=== PATIENT | male | born 1955 | race Caucasian/White ===

== ENCOUNTER → 2023-11-18 | Emergency (ER) | payer OTHER ==
[~2023-11-18] MED LIST: FOLIC ACID 5 MG/ML VIAL ONE; LEVETIRACETAM 500 MG/5 ML VIAL IV ONE; NA CHLORIDE 0.9% 1,000 ML ONE; NA CHLORIDE 0.9% 1,000 ML with MULTIVITAMINS INJ 10 ML, THIAMINE HCL 100 MG, FOLIC ACID... IV ONE; NA CHLORIDE 0.9% 100 ML ONE; THIAMINE 200 MG/2 ML INJ ONE
[2023-11-18 11:29] LABS: Absolute Basophils 0.1 K/uL (0-0.5); Absolute Eosinophils 0.1 K/uL (0-0.5); Basophils % 0.9 % (0-1.3); Eosinophils % 1.3 % (0-4.4); Hematocrit 50.4 % (39.6-49.0); Lymphocytes % 17.1 % (15.3-44.8); MCV 92.1 fL (80-100); MPV 7.4 fL (7.6-11.3); Platelets 254 thou/uL (152-406); RBC Red Blood Cell Count 5.47 M/uL (4.33-5.43)
[2023-11-18 11:32] LABS: Protime INR 1.15
--- NOTE | 2023-11-18 11:45 | ER ---
Nurse's Notes [facility] Name: Gerry Keating Age: 68 yrs Sex: Male : 1955 Arrival Date: 11/18/2023 Time: 10:56 Bed 2 Private MD: Diagnosis: Traumatic subdural hemorrhage-left large, acute on chronic;Fall on same level, unspecified;Alcohol abuse Presentation: 11/17 11:09 Chief complaint: Per he fell in shower 2 days ago, does not recall falling, since hb then has been having trouble speaking and c/o left leg weakness. Pt also reports SOB. Right sided facial droop noted. Coronavirus screen: At this time, the client does not indicate any symptoms associated with coronavirus-19. Ebola Screen: No symptoms or risks identified at this time. An acute neurological deficit is present. The charge nurse has been notified. Initial Sepsis Screen: Does the patient meet any 2 criteria? No. Patient's initial sepsis screen is negative. Does the patient have a suspected source of infection? No. Patient's initial sepsis screen is negative. Risk Assessment: Do you want to hurt yourself or someone else? Patient reports no desire to harm self or others. Onset of symptoms was November 16, 2023. 11:09 Method Of Arrival: Wheelchair hb 11:09 Acuity: JAYJAY 2 hb Triage Assessment: 11:14 The onset of the patients symptoms was November 16, 2023 at 09:00. General: Appears bp distressed, Behavior is cooperative. Pain: Denies pain. EENT: No deficits noted. Neuro: Reports weakness in right arm and right leg. Cardiovascular: No deficits noted. Respiratory: No deficits noted. GI: No signs and/or symptoms were reported involving the gastrointestinal system. : No signs and/or symptoms were reported regarding the genitourinary system. Derm: No deficits noted. Musculoskeletal: No deficits noted. Stroke Activation: Symptom onset > 6 hours Physician: Stroke Attending; Name: ; Notified At: ; Arrived At: Physician: Chief Stroke Resident; Name: ; Notified At: ; Arrived At: Physician: Stroke Resident; Name: ; Notified At: ; Arrived At: Physician: ED Attending; Name: ; Notified At: ; Arrived At: Physician: ED Resident; Name: ; Notified At: ; Arrived At: Historical: - Allergies: 11:13 No Known Allergies; bp 11:13 No Known Allergies; hb - Home Meds: 11:13 Zoloft 150 mg Oral tablet daily [Active]; amlodipine 5 mg oral tablet 2 times per day hb [Active]; atorvastatin 20 mg oral tablet [Active]; metoprolol tartrate 25 mg Oral tablet 2 times per day [Active]; Zyrtec 10 mg Oral tablet daily [Active]; multivitamin oral tablet daily [Active]; - PMHx: 11:13 Hypertensive disorder; bp 11:13 Hypertension; hb - PSHx: 11:13 Hand; Back x 4; hb - Immunization history:: Adult Immunizations up to date, Adult Immunizations up to date. - Social history:: Smoking status: Patient denies any tobacco usage or history of. Smoking status: Patient reports use of chewing tobacco. Reported history of juuling and/or vaping. Patient uses alcohol, on a daily basis. - Family history:: not pertinent. Screenin:15 [facility] ED Fall Risk Assessment (Adult) History of falling in the last 3 months, bp including since admission No falls in past 3 months (0 pts). Abuse screen: Denies threats or abuse. Denies injuries from another. Nutritional screening: No deficits noted. Tuberculosis screening: No symptoms or risk factors identified. Assessment: 11:15 VAN Scoring: Arm Drift: Minor drift Visual Disturbance: No visual disturbance noted. bp Aphasia: Expressive aphasia noted. Provider notified of +VAN scoring. Neglect: No neglect noted. [place] Swallow Protocol Exclusion Criteria: Unable to remain alert for testing: No NPO for medical/surgical reason by provider order No Head-of-bed restricted <30 degrees Tracheostomy tube present No No thin liquids due to preexisting dysphagia/baseline modified diet thickened liquids No Exclusion Criteria Result: Proceed Brief Cognitive Screen What is your name? Normal, Where are you right now? Normal, What year is it? Normal. Oral Mechanism Examination Facial Symmetry: Normal, Motion: Normal, Lip Closure: Normal, Oral Mechanism Result: Normal. TNKase (Tenecteplase) Screening: Contraindications: Patient reports onset of signs and symptoms of stroke greater than 6 hours ago:. 11:52 Reassessment: PT RETURNED FROM CT, CT HEAD GROSSLY ABNORMAL PER RADIOLOGIST. bp 12:10 Reassessment: REPORT TO CORINE JOHN AT [facility]. [facility] IN ROUTE 20 MIN ETA. bp 12:44 Reassessment: PT [place] WITH [facility]. bp Vital Signs: 11:09 BP 114 / 99; Pulse 66; Resp 22; Temp 98.4(O); Pulse Ox 97% on R/A; Weight 95.25 kg; hb Height 6 ft. 0 in. ; Pain 0/10; 11:52 BP 118 / 82; Pulse 62; Resp 16; Temp 98; Pulse Ox 96% ; bp 12:11 BP 114 / 77; Pulse 61; Resp 17; Pulse Ox 98% ; bp 11:09 Body Mass Index 28.48 (95.25 kg, 182.88 cm) hb 11:09 Pain Scale: Adult hb NIH Stroke Scale Scores: 11:15 NIHSS Score: 4 bp 11:32 NIHSS Score: 5 bebeto 12:10 NIHSS Score: 4 bp ED Course: 10:05 EKG done, by ED staff, reviewed by Colin Jennings MD. hb 10:05 Client placed on continuous cardiac and pulse oximetry monitoring. NIBP monitoring hb applied. biodiesel production associate on. Pulse ox on. NIBP on. Warm blanket given. 10:57 Patient arrived in ED. rg4 10:58 Sajan Bates, RN is Primary Nurse. bp 11:00 Colin Jennings MD is Attending Physician. bebeto 11:13 Triage completed. hb 11:13 Inserted saline lock: 20 gauge in right forearm, using aseptic technique. Blood bp collected. 11:15 Patient has correct armband on for positive identification. bp 11:25 XRAY Chest (1 view) In Process Unspecified. EDMS 11:42 CT Stroke Brain w/o Contrast In Process Unspecified. EDMS 11:43 CT C Spine In Process Unspecified. EDMS 11:47 CT Chest, Abdomen, Pelvis - W/Contrast In Process Unspecified. EDMS 11:49 \T\[address] Jennings with Corin Jean Rn from the [facility] Transfer [facility]/ \T\ 114 Dr. Jennings connected with Dr. Xiao the neuro chief controller for [facility] for patient transfer consultation. / \T\[address] to [address] Jennings by Corin Jean Rn/ patient has been accepted to [facility] ER/ Dr. Quang Xiao has accepted the patient in transfer/ report to be called to [phone]. 11:50 [facility] called by Dr Jennings. eb 12:45 No provider procedures requiring assistance completed. Patient transferred, IV remains bp in place. 12:45 Provided Education on: N/A. bp 12:45 Arm band placed on. bp Administered Medications: 11:51 Drug: Keppra IV 1000 mg IV at per protocol once Route: IV; Rate: per protocol; Site: bp right forearm; 12:44 Follow up: IV Status: Completed infusion; IV Intake: 100ml bp 11:52 Drug: NS 0.9% IV 1000 ml IV at 1 bolus Per protocol; 1000 mL bolus Route: IV; Rate: 1 bp bolus; Site: right antecubital; 12:43 Follow up: IV Status: Completed infusion; IV Intake: 1000ml bp 11:52 Drug: foLIC Acid IVPB 1 mg IVPB once Route: IVPB; Site: right antecubital; bp 12:43 Follow up: IV Status: Completed infusion; IV Intake: 100ml bp 12:04 Drug: Thiamine IV 100 mg IV at per protocol once Route: IV; Rate: per protocol; Site: bp right forearm; 12:44 Follow up: IV Status: Completed infusion bp 12:43 Drug: Banana Bag - (Multivitamin IV 1 amp, NS 0.9% IV 1000 ml, Thiamine IV 100 mg, bp foLIC Acid IVPB 1 mg) IV at 150 ml/hr once Route: IV; Rate: 150 ml/hr; Site: right forearm; 12:44 Follow up: IV Status: Infusion continued upon transfer bp Medication: 11:15 VIS not applicable for this client. bp Intake: 12:43 IV: 1000ml; Total: 1000ml. bp 12:43 IV: 100ml; Total: 1100ml. bp 12:44 IV: 100ml; Total: 1200ml. bp Outcome: 11:44 ER care complete, transfer ordered by bebeto 12:45 Transferred by helicopter to [facility], Transfer form completed. bp 12:45 Condition: stable 12:45 Instructed on the need for transfer, 12:46 Patient left the ED. bp NIH Stroke Scale - NIH Stroke Score Date: 11/18/2023 Time: 11:15 Total Score = 4 10. Dysarthria (speech clarity - read or repeat words) - 1(Mild to Moderate) 11. Extinction and Inattention (visual/tactile/auditory/spatial/personal) - 0(No abnormality) 1a. Level of Consciousness (LOC) - 0(Alert) 1b. Level of Consciousness (LOC) (Month \T\ Age) - 0(Both) 1c. LOC Commands (Open \T\ Closes Eyes/Streetcar Motorman) - 0(Both) 2. Best Gaze (Lateral Gaze Paresis) - 0(Normal) 3. Visual Field Loss - 0(No visual loss) 4. Facial Palsy - 1(Minor Paralysis) 5a. Left Arm: Motor (10-second hold) - 0(No drift) 5b. Right Arm: Motor (10-second hold) - 1(Drift) 6a. Left Leg: Motor (5-second hold - always test supine) - 0(No drift) 6b. Right Leg: Motor (5-second hold - always test supine) - 1(Drift) 7. Limb Ataxia (finger/nose \T\ heel/singh - test with eyes open) - 0(Absent) 8. Sensory Loss (pinprick arms/legs/face) - 0(Normal) 9. Best Language: Aphasia (description/naming/reading) - 0(No aphasia) Initials: bp NIH Stroke Scale - NIH Stroke Score Date: 11/18/2023 Time: 11:32 Total Score = 5 10. Dysarthria (speech clarity - read or repeat words) - 0(Normal) 11. Extinction and Inattention (visual/tactile/auditory/spatial/personal) - 0(No abnormality) 1a. Level of Consciousness (LOC) - 0(Alert) 1b. Level of Consciousness (LOC) (Month \T\ Age) - 0(Both) 1c. LOC Commands (Open \T\ Closes Eyes/Streetcar Motorman) - 0(Both) 2. Best Gaze (Lateral Gaze Paresis) - 0(Normal) 3. Visual Field Loss - 0(No visual loss) 4. Facial Palsy - 0(Normal) 5a. Left Arm: Motor (10-second hold) - 0(No drift) 5b. Right Arm: Motor (10-second hold) - 1(Drift) 6a. Left Leg: Motor (5-second hold - always test supine) - 0(No drift) 6b. Right Leg: Motor (5-second hold - always test supine) - 1(Drift) 7. Limb Ataxia (finger/nose \T\ heel/singh - test with eyes open) - 2(Present in two limbs) 8. Sensory Loss (pinprick arms/legs/face) - 0(Normal) 9. Best Language: Aphasia (description/naming/reading) - 1(Mild to moderate aphasia) Initials: bebeto NIH Stroke Scale - NIH Stroke Score Date: 11/18/2023 Time: 12:10 Total Score = 4 10. Dysarthria (speech clarity - read or repeat words) - 1(Mild to Moderate) 11. Extinction and Inattention (visual/tactile/auditory/spatial/personal) - 0(No abnormality) 1a. Level of Consciousness (LOC) - 0(Alert) 1b. Level of Consciousness (LOC) (Month \T\ Age) - 0(Both) 1c. LOC Commands (Open \T\ Closes Eyes/Streetcar Motorman) - 0(Both) 2. Best Gaze (Lateral Gaze Paresis) - 0(Normal) 3. Visual Field Loss - 0(No visual loss) 4. Facial Palsy - 1(Minor Paralysis) 5a. Left Arm: Motor (10-second hold) - 0(No drift) 5b. Right Arm: Motor (10-second hold) - 1(Drift) 6a. Left Leg: Motor (5-second hold - always test supine) - 0(No drift) 6b. Right Leg: Motor (5-second hold - always test supine) - 1(Drift) 7. Limb Ataxia (finger/nose \T\ heel/singh - test with eyes open) - 0(Absent) 8. Sensory Loss (pinprick arms/legs/face) - 0(Normal) 9. Best Language: Aphasia (description/naming/reading) - 0(No aphasia) Initials: bp Signatures: Dispatcher [employer] Colin Escobedo MD MD cha Baxter, Heather, RN RN Anahi Frankel Brian, RN Kelly Chan Corrections: (The following items were deleted from the chart) 11:19 11:13 PMHx: Hyppertension; hb hb
--- NOTE | 2023-11-18 11:45 | EDPHYS ---
Physician Documentation [facility] Name: Gerry Keating Age: 68 yrs Sex: Male : 1955 Arrival Date: 11/18/2023 Time: 10:56 Bed 2 Private MD: ED Physician Colin Jennings HPI: 11/17 11:32 This 68 yrs old Male presents to ER via Wheelchair with complaints of Trouble bebeto Talking, Trouble Walking. 11:32 The patient presents to the emergency department with a speech or higher order brain bebeto function problem, aphasia, difficulty standing, the patient falls to the right, difficult walking, the patient falls to the right. Onset: The symptoms/episode began/occurred 2 day(s) ago. Context: occurred at home. Associated signs and symptoms: The patient has no apparent associated signs or symptoms. Severity of symptoms: At their worst the symptoms were moderate in the emergency department the symptoms are unchanged. Patient's baseline: Neuro: alert and fully oriented. Current symptoms: dysphasia, paralysis or paresis, that is moderate. The patient has not experienced similar symptoms in the past. Historical: - Allergies: 11:13 No Known Allergies; bp 11:13 No Known Allergies; hb - Home Meds: 11:13 Zoloft 150 mg Oral tablet daily [Active]; amlodipine 5 mg oral tablet 2 times per day hb [Active]; atorvastatin 20 mg oral tablet [Active]; metoprolol tartrate 25 mg Oral tablet 2 times per day [Active]; Zyrtec 10 mg Oral tablet daily [Active]; multivitamin oral tablet daily [Active]; - PMHx: 11:13 Hypertensive disorder; bp 11:13 Hypertension; hb - PSHx: 11:13 Hand; Back x 4; hb - Immunization history:: Adult Immunizations up to date, Adult Immunizations up to date. - Social history:: Smoking status: Patient denies any tobacco usage or history of. Smoking status: Patient reports use of chewing tobacco. Reported history of juuling and/or vaping. Patient uses alcohol, on a daily basis. - Family history:: not pertinent. ROS: 11:32 Constitutional: Negative for fever, chills, and weight loss, Eyes: Negative for injury, bebeto pain, redness, and discharge, ENT: Negative for injury, pain, and discharge, Neck: Negative for injury, pain, and swelling, Cardiovascular: Negative for chest pain, palpitations, and edema, Respiratory: Negative for shortness of breath, cough, wheezing, and pleuritic chest pain, Abdomen/GI: Negative for abdominal pain, nausea, vomiting, diarrhea, and constipation, Back: Negative for injury and pain, : Negative for injury, bleeding, discharge, and swelling, MS/Extremity: Negative for injury and deformity, Skin: Negative for injury, rash, and discoloration, Psych: Negative for depression, anxiety, suicide ideation, homicidal ideation, and hallucinations, Allergy/Immunology: Negative for hives, rash, and allergies, Endocrine: Negative for neck swelling, polydipsia, polyuria, polyphagia, and marked weight changes, Hematologic/Lymphatic: Negative for swollen nodes, abnormal bleeding, and unusual bruising, 11:32 Neuro: Positive for dizziness, gait disturbance, speech changes, weakness, of the right arm and right leg, Exam: 11:32 Constitutional: This is a well developed, well nourished patient who is awake, alert, bebeto and in no acute distress. Head/Face: Normocephalic, atraumatic. Eyes: Pupils equal round and reactive to light, extra-ocular motions intact. Lids and lashes normal. Conjunctiva and sclera are non-icteric and not injected. Cornea within normal limits. Periorbital areas with no swelling, redness, or edema. ENT: Nares patent. No nasal discharge, no septal abnormalities noted. Tympanic membranes are normal and external auditory canals are clear. Oropharynx with no redness, swelling, or masses, exudates, or evidence of obstruction, uvula midline. Mucous membranes moist. Neck: Trachea midline, no thyromegaly or masses palpated, and no cervical lymphadenopathy. Supple, full range of motion without nuchal rigidity, or vertebral point tenderness. No Meningismus. Chest/axilla: Normal chest wall appearance and motion. Nontender with no deformity. No lesions are appreciated. Cardiovascular: Regular rate and rhythm with a normal S1 and S2. No gallops, murmurs, or rubs. Normal PMI, no JVD. No pulse deficits. Respiratory: Lungs have equal breath sounds bilaterally, clear to auscultation and percussion. No rales, rhonchi or wheezes noted. No increased work of breathing, no retractions or nasal flaring. Abdomen/GI: Soft, non-tender, with normal bowel sounds. No distension or tympany. No guarding or rebound. No evidence of tenderness throughout. Back: No spinal tenderness. No costovertebral tenderness. Full range of motion. Male : Normal genitalia with no discharge or lesions. Skin: Warm, dry with normal turgor. Normal color with no rashes, no lesions, and no evidence of cellulitis. Psych: Awake, alert, with orientation to person, place and time. Behavior, mood, and affect are within normal limits. 11:32 Musculoskeletal/extremity: ROM: limited active range of motion, in the right arm and right leg, Circulation is intact in all extremities. Sensation intact. Compartment Syndrome exam of affected extremity: is normal. DVT Exam: no pain, no swelling, no tenderness, negative Homans' sign noted on exam, no appreciated bluish discoloration, no erythema, no increased warmth, 11:47 ECG was reviewed by the Attending Physician. [facility] Vital Signs: 11:09 BP 114 / 99; Pulse 66; Resp 22; Temp 98.4(O); Pulse Ox 97% on R/A; Weight 95.25 kg; hb Height 6 ft. 0 in. ; Pain 0/10; 11:52 BP 118 / 82; Pulse 62; Resp 16; Temp 98; Pulse Ox 96% ; bp 12:11 BP 114 / 77; Pulse 61; Resp 17; Pulse Ox 98% ; bp 11:09 Body Mass Index 28.48 (95.25 kg, 182.88 cm) hb 11:09 Pain Scale: Adult NIH Stroke Scale Scores: 11:15 NIHSS Score: 4 bp 11:32 NIHSS Score: 5 bebeto 12:10 NIHSS Score: 4 bp MDM: 11:00 Patient medically screened. [facility] 11:35 Data reviewed: vital signs, nurses notes, lab test result(s), EKG, radiologic studies, [facility] CT scan, plain films. Consideration of Admission/Observation Escalation of care including admission/observation considered. I considered the following discharge prescriptions or medication management in the emergency department Medications were administered in the Emergency Department. See MAR. Independent interpretation of the following test(s) in the Emergency Department EKG: See my EKG interpretation above. Test considered but Not performed: MRI: data integration analyst mri brain. Care significantly affected by the following chronic conditions: Hypertension, Obesity, Liver Disease, tabacco , etoh. 11/17 11:02 Order name: Basic Metabolic Panel; Complete Time: 11:58 [facility] 11/17 11:02 Order name: CBC with Diff; Complete Time: :58 [facility] 11/17 11:02 Order name: LFT's; Complete Time: 11:58 [facility] 11/17 11:02 Order name: Magnesium; Complete Time: 11:58 [facility] 11/17 11:02 Order name: NT PRO-BNP; Complete Time: 11:58 [facility] 11/17 11:02 Order name: PT-INR; Complete Time: :58 [facility] 11/17 11:02 Order name: Troponin HS; Complete Time: : [facility] 11/17 11:02 Order name: CRP; Complete Time: :58 [facility] 11/17 11:02 Order name: XRAY Chest (1 view) [facility] 11/17 11:02 Order name: CT Stroke Brain w/o Contrast; Complete Time: :58 [facility] 11/17 11:23 Order name: CT C Spine 11/17 11:39 Order name: CT Chest, Abdomen, Pelvis - W/Contrast 11/17 11:02 Order name: EKG; Complete Time: 11:03 [facility] 11/17 11:02 Order name: Cardiac monitoring; Complete Time: 11: [facility] 11/17 11:02 Order name: EKG - Nurse/Tech; Complete Time: 11:11 [facility] 11/17 11:02 Order name: IV Saline Lock; Complete Time: 11:11 [facility] 11/17 11:02 Order name: Labs collected and sent; Complete Time: 11: [facility] 11/17 11:02 Order name: O2 Per Protocol; Complete Time: 11: [facility] 11/17 11:02 Order name: O2 Sat Monitoring; Complete Time: 11: [facility] 11/17 11:47 Order name: NPO; Complete Time: 11:53 [facility] EC:47 Rate is 65 beats/min. Rhythm is regular. QRS [place] is Normal. SD interval is normal. QRS bebeto interval is normal. QT interval is normal. No Q waves. T waves are Normal. No ST changes noted. Clinical impression: NSR w/ Non-specific ST/T Changes and No evidence of ischemia. Interpreted by me. Reviewed by me. Administered Medications: 11:51 Drug: Keppra IV 1000 mg IV at per protocol once Route: IV; Rate: per protocol; Site: bp right forearm; 12:44 Follow up: IV Status: Completed infusion; IV Intake: 100ml bp 11:52 Drug: NS 0.9% IV 1000 ml IV at 1 bolus Per protocol; 1000 mL bolus Route: IV; Rate: 1 bp bolus; Site: right antecubital; 12:43 Follow up: IV Status: Completed infusion; IV Intake: 1000ml bp 11:52 Drug: foLIC Acid IVPB 1 mg IVPB once Route: IVPB; Site: right antecubital; bp 12:43 Follow up: IV Status: Completed infusion; IV Intake: 100ml bp 12:04 Drug: Thiamine IV 100 mg IV at per protocol once Route: IV; Rate: per protocol; Site: bp right forearm; 12:44 Follow up: IV Status: Completed infusion bp 12:43 Drug: Banana Bag - (Multivitamin IV 1 amp, NS 0.9% IV 1000 ml, Thiamine IV 100 mg, bp foLIC Acid IVPB 1 mg) IV at 150 ml/hr once Route: IV; Rate: 150 ml/hr; Site: right forearm; 12:44 Follow up: IV Status: Infusion continued upon transfer bp Disposition Summary: 11/18/23 11:44 Transfer Ordered Notes: Transfer Location: [facility] bebeto Reason: Higher level of care bebeto Condition: Stable bebeto Problem: new bebeto Symptoms: have improved bebeto Accepting Physician: anderson savage [facility] [place] [facility](11/18/23 12:46) bp Diagnosis - Fall on same level, unspecified bebeto - Traumatic subdural hemorrhage - left large, acute on chronic(11/18/23 11:46) bebeto - Alcohol abuse bebeto Forms: - Medication Reconciliation Form bebeto - SBAR form bebeto NIH Stroke Scale - NIH Stroke Score Date: 11/18/2023 Time: 11:15 Total Score = 4 10. Dysarthria (speech clarity - read or repeat words) - 1(Mild to Moderate) 11. Extinction and Inattention (visual/tactile/auditory/spatial/personal) - 0(No abnormality) 1a. Level of Consciousness (LOC) - 0(Alert) 1b. Level of Consciousness (LOC) (Month \T\ Age) - 0(Both) 1c. LOC Commands (Open \T\ Closes Eyes/Public Records Officer) - 0(Both) 2. Best Gaze (Lateral Gaze Paresis) - 0(Normal) 3. Visual Field Loss - 0(No visual loss) 4. Facial Palsy - 1(Minor Paralysis) 5a. Left Arm: Motor (10-second hold) - 0(No drift) 5b. Right Arm: Motor (10-second hold) - 1(Drift) 6a. Left Leg: Motor (5-second hold - always test supine) - 0(No drift) 6b. Right Leg: Motor (5-second hold - always test supine) - 1(Drift) 7. Limb Ataxia (finger/nose \T\ heel/singh - test with eyes open) - 0(Absent) 8. Sensory Loss (pinprick arms/legs/face) - 0(Normal) 9. Best Language: Aphasia (description/naming/reading) - 0(No aphasia) Initials: NIH Stroke Scale - NIH Stroke Score Date: 11/18/2023 Time: 11:32 Total Score = 5 10. Dysarthria (speech clarity - read or repeat words) - 0(Normal) 11. Extinction and Inattention (visual/tactile/auditory/spatial/personal) - 0(No abnormality) 1a. Level of Consciousness (LOC) - 0(Alert) 1b. Level of Consciousness (LOC) (Month \T\ Age) - 0(Both) 1c. LOC Commands (Open \T\ Closes Eyes/Public Records Officer) - 0(Both) 2. Best Gaze (Lateral Gaze Paresis) - 0(Normal) 3. Visual Field Loss - 0(No visual loss) 4. Facial Palsy - 0(Normal) 5a. Left Arm: Motor (10-second hold) - 0(No drift) 5b. Right Arm: Motor (10-second hold) - 1(Drift) 6a. Left Leg: Motor (5-second hold - always test supine) - 0(No drift) 6b. Right Leg: Motor (5-second hold - always test supine) - 1(Drift) 7. Limb Ataxia (finger/nose \T\ heel/singh - test with eyes open) - 2(Present in two limbs) 8. Sensory Loss (pinprick arms/legs/face) - 0(Normal) 9. Best Language: Aphasia (description/naming/reading) - 1(Mild to moderate aphasia) Initials: [facility] NIH Stroke Scale - NIH Stroke Score Date: 11/18/2023 Time: 12:10 Total Score = 4 10. Dysarthria (speech clarity - read or repeat words) - 1(Mild to Moderate) 11. Extinction and Inattention (visual/tactile/auditory/spatial/personal) - 0(No abnormality) 1a. Level of Consciousness (LOC) - 0(Alert) 1b. Level of Consciousness (LOC) (Month \T\ Age) - 0(Both) 1c. LOC Commands (Open \T\ Closes Eyes/Public Records Officer) - 0(Both) 2. Best Gaze (Lateral Gaze Paresis) - 0(Normal) 3. Visual Field Loss - 0(No visual loss) 4. Facial Palsy - 1(Minor Paralysis) 5a. Left Arm: Motor (10-second hold) - 0(No drift) 5b. Right Arm: Motor (10-second hold) - 1(Drift) 6a. Left Leg: Motor (5-second hold - always test supine) - 0(No drift) 6b. Right Leg: Motor (5-second hold - always test supine) - 1(Drift) 7. Limb Ataxia (finger/nose \T\ heel/singh - test with eyes open) - 0(Absent) 8. Sensory Loss (pinprick arms/legs/face) - 0(Normal) 9. Best Language: Aphasia (description/naming/reading) - 0(No aphasia) Initials: bp Signatures: Dispatcher [employer] EDMS Colin Jennings MD MD cha Baxter, Heather, RN RN Sajan Gomez, RN RN bp Corrections: (The following items were deleted from the chart) 11:19 11:13 PMHx: Hyppertension; hb hb 11:40 11:03 Head Angio+CT.RAD.BRZ ordered. EDMS EDMS 11:41 11:03 Neck Angio+CT.RAD.BRZ ordered. EDMS EDMS 11:46 11:44 to [facility] bebeto 11:46 11:44 Traumatic subdural hemorrhage bebeto bebeto 12:46 11:46 to [facility] bp
[2023-11-18 11:49] LABS: ALT/SGPT 50 U/L (16-61); AST/SGOT 28 U/L (15-37); Albumin 3.5 g/dL (3.4-5.0); Albumin/Globulin Ratio 1.1 (1.1-1.8); Alkaline Phosphatase 58 U/L (45-117); Anion Gap 8.9 mEq/L (5.0-15.0); BUN Blood Urea Nitrogen 27 mg/dL (7-18); Bicarbonate 23 mEq/L (21-32); Bilirubin Direct 0.2 mg/dL (0-0.2); Bilirubin Indirect, Calculated 0.6 mg/dL (0.2-0.8); Bilirubin Total 0.8 mg/dL (0.2-1.0); Globulin 3.2 g/dL (2.3-3.5); Glomerular Filtration Rate 70 ml/min (=/>90); Glucose Level 138 mg/dL (74-106); Magnesium 2.3 mg/dL (1.6-2.4); NT PRO-BNP 1676 pg/mL (<125); Potassium 3.9 mEq/L (3.5-5.1); Protein, Total 6.7 g/dL (6.4-8.2); Sodium Level 140 mEq/L (136-145); Troponin High Sensitivity 5.5 pg/mL (<58.9)
[2023-11-18 11:51] LABS: C-Reactive Protein < 2.90 mg/L (<3.00)
--- NOTE | 2023-11-18 11:57 | RAD REPORT ---
EXAM DESCRIPTION: CT - Ct Stroke Brain Wo Cont - 11/18/2023 11:41 am CLINICAL HISTORY: Confusion/alteration of awareness COMPARISON: none TECHNIQUE: Computed axial tomography of the head was obtained. All CT scans are performed using dose optimization technique as appropriate and may include automated exposure control or mA/KV adjustment according to patient size. FINDINGS: A very large crescentic fluid collection left cerebral convexity contains low to intermedi ate as well as high density having the appearance of an acute subdural hematoma superimposed over sub acute hemorrhage. Shift of the midline structures 11 millimeter to the right with compression lateral ventricle. Fluid within the sinuses/ mastoids is not seen. IMPRESSION: Very large subdural hematoma left cerebral convexity containing acute and subacute blood . Marked shift to the midline structures towards the right Dr Jennings in emergency room was notified at 11:41 a.m. November 18, 2023
--- NOTE | 2023-11-18 12:00 | RAD REPORT ---
EXAM DESCRIPTION: CT - C Spine Wo Con - 11/18/2023 11:41 am CLINICAL HISTORY: Neck pain status post fall COMPARISON: None TECHNIQUE: Computed axial tomography of the cervical spine were obtained with sagittal and coronal r econstruction images generated and reviewed. All CT scans are performed using dose optimization technique as appropriate and may include automated exposure control or mA/KV adjustment according to patient size. FINDINGS: A cervical fracture is not seen. Minimal posterior subluxation C3 on C4 No dislocation. Spondylosis cervical spine IMPRESSION: A cervical fracture is not seen. If the patient continues have symptoms to suggest spinal cord/spinal canal pathology then MRI would b e recommended.
--- NOTE | 2023-11-18 12:09 | RAD REPORT ---
EXAM DESCRIPTION: CT - Chest Abdomen Pelvis W Cont - 11/18/2023 11:45 am CLINICAL HISTORY: Chest and abdominal pain status post fall COMPARISON: none TECHNIQUE: Computed axial tomography of the chest, abdomen and pelvis was obtained. Oral contrast wa s given. IV contrast was not requested. All CT scans are performed using dose optimization technique as appropriate and may include automated exposure control or mA/KV adjustment according to patient size. FINDINGS: The evaluation of mediastinum, nirali, vessels and solid organs is limited secondary to the lack of IV contrast administration A lung contusion is not present. A pleural effusion is not present. A pericardial effusion is not seen. A mediastinal hematoma is not seen. The liver, spleen, pancreas, adrenals, kidneys and bladder do not demonstrate a traumatic injury. There is no evidence of diverticulitis. Postsurgical changes lumbar spine IMPRESSION: No acute traumatic injury involving the chest, abdomen or pelvis is seen
--- NOTE | 2023-11-18 12:12 | RAD REPORT ---
EXAM DESCRIPTION: [place] Single View11/18/2023 11:23 am CLINICAL HISTORY: Chest pain COMPARISON: none FINDINGS: The lungs appear clear of acute infiltrate. The heart is normal size IMPRESSION: No acute abnormalities displayed
[2023-11-18 12:57] VITALS: BP 114/77; TEMP 98; O2SAT 98
== END ==
LOC: ER 10:56
DX: S06.5X0A Traumatic subdural hemorrhage without loss of consciousness, initial encounter (principal); R29.705 NIHSS score 5; W18.30XA Fall on same level, unspecified, initial encounter; F10.10 Alcohol abuse, uncomplicated; I10 Essential (primary) hypertension; F17.220 Nicotine dependence, chewing tobacco, uncomplicated
CPT/HCPCS: 85025; 80048; 36415; 83735; 85610; 82565; 80076; 84484; 83880; 86140; 72125; 71260; 74177; 70450; 71045; Q9967; J3411 ×2; J1953; J7030 ×2; 99285